=== PATIENT | male | born 1960 | race African-American/Black ===

== ENCOUNTER 2016-08-09 17:28 | Emergency (ER) | payer MEDICARE ==
[~2016-08-09] VITALS: Ht 177.8 cm; Wt 77.1 kg
[2016-08-09 17:51] VITALS: BP 164/97
[2016-08-09] MEDS ORDERED: ATRIPLA TABLET1 EAC1 ORAL (17:51)
[2016-08-09] MEDS ORDERED: BENAZEPRIL HCL40 MG ORAL (17:51)
[2016-08-09 18:49] VITALS: BP 164/97
--- NOTE | 2016-08-09 22:18 | Emergency Room Report ---
History of Present Illness General Chief Complaint: General Complaint Source: Patient Present Illness HPI The patient is a 56-year-old male with a history of tinnitus presenting with left ear ringing. 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 The pt denies other symptoms including ear pain, blurred vision, F, chills, N[place] Allergies: Coded Allergies: No Known Allergies (Unverified , 08/09/16) Patient History Past Medical History: see triage record Pertinent Family History: none Reviewed Nursing Documentation: PMH: Agreed, PSxH: Agreed Nursing Documentation-PMH Hx Hypertension: Yes Review of Systems All Other Systems: negative except mentioned in HPI Physical Exam Vital Signs Date Time Temp Pulse Resp B/P Pulse Ox O2 Delivery O2 Flow Rate FiO2 08/09/16 17:44 98.6 88 16 164/101 97 Room Air Sp02 EP Interpretation: reviewed, normal General Appearance: no apparent distress, alert, GCS 15, non-toxic Head: normocephalic, atraumatic Eyes: bilateral eye PERRL, bilateral eye normal inspection ENT: hearing grossly normal, normal pharynx, no angioedema, normal voice, TMs + canals normal, uvula midline, moist mucus membranes Neck: full range of motion, supple/symm/no masses Respiratory: chest non-tender, lungs clear, normal breath sounds, no wheezing, speaking full sentences Cardiovascular #1: regular rate, rhythm, no edema Neurologic: alert, oriented x3, responsive, motor strength/tone normal, sensory intact, speech normal Psychiatric: judgement/insight normal, memory normal, mood/affect normal, no suicidal/homicidal ideation Skin: normal color, no rash, warm/dry, well hydrated Lymphatic: no adenopathy Medical Decision Making PA Attestation Dr. Crowell is my supervising physician. Patient management was discussed with my supervising physician Diagnostic Impression: Primary Impression: Tinnitus, left ear ER Course The patient is a 56-year-old male with a history of tinnitus presenting with left ear ringing. Differential diagnosis include but not limited to tinnitus, otitis externa, otitis media, mastoiditis, sinusitis, pharyngitis PE: Vitals show HTN. Pt states he missed taking his BP med due to coming to the ED. HEENT: L EAC is clear. No erythema. No edema. No DC. TM intact. No bulging. No fluid. No erythema. No lymphadenopathy. The patient is advised he needs to followup with an ENT. ER precautions are given Last Vital Signs Date Time Temp Pulse Resp B/P Pulse Ox O2 Delivery O2 Flow Rate FiO2 08/09/16 18:49 98.6 88 16 164/97 97 Room Air Status: improved Disposition: HOME, SELF-CARE Condition: Improved Referrals: [facility],REFERRING (PCP) Patient Instructions: Tinnitus Additional Instructions: I discussed my findings with the patient. All questions and concerns have been answered. Treatment and medication compliance have been addressed. I advised the patient that they need to follow up with PMD in 3-5 days. Return to ED if symptoms worsen, new symptoms arise, or if needed for any reason. Patient verbalized understanding of discharge instructions. Please obtain referral for ENT SANTY COX Aug 09, 2016 22:18
== END 2016-08-09 18:50 | disposition home or self-care (01) ==
LOC: EMR 18:10
DX: H93.12 Tinnitus, left ear (principal); I10 Essential (primary) hypertension
CPT/HCPCS: 99282